=== PATIENT | female | born 1965 | race Caucasian/White ===

== ENCOUNTER 2018-03-03 22:58 | Emergency (ER) | payer BC ==
[2018-03-03 23:36] VITALS: BP 166/98
--- NOTE | 2018-03-03 23:53 | EDM.PDOC ---
ED HPI GENERAL MEDICAL PROBLEM - General Chief Complaint: General Stated Complaint: TICK BITE Time Seen by Provider: 03/03/18 23:40 Source of Information: Reports: Patient History Limitations: Reports: No Limitations - History of Present Illness INITIAL COMMENTS - FREE TEXT/NARRATIVE: 52 yo female had her pull a deer tick off her L thigh this evening. She came in looking for doxycycline for prophylaxis. Uncertain how long the tick had been attached. Onset: Today Onset Date: 03/03/18 Duration: Other (unknown) Location: Reports: Lower Extremity, Left Quality: Reports: Other (no pain) Severity: Mild Improves with: Reports: None Worsens with: Reports: None Context: Reports: Other (deer tick bite) Associated Symptoms: Reports: No Other Symptoms Treatments APNS: Reports: Other (see below) (tick removal ) - Related Data Allergies Allergy/AdvReac Type Severity Reaction Status Date / Time No Known Allergies Allergy Verified 03/03/18 23:15 Home Meds: Home Meds Insulin Aspart [NovoLOG] 1 unit SQ TIDMEALS PRN 10/07/15 [History] Insulin Glarg,Human.Rec.Analog [Lantus Solostar] 10 units SQ QPM 10/07/15 [ History] Insulin Glarg,Human.Rec.Analog [Lantus Solostar] 14 units SQ QAM 10/07/15 [ History] Lisinopril 40 mg PO DAILY 03/03/18 [History] Past Medical History Cardiovascular History: Reports: Hypertension SOLE INKER History: Reports: Endocrine/Metabolic History: Reports: Diabetes, Type I Oncologic (Cancer) History: Reports: Cervix - Infectious Disease History Infectious Disease History: Reports: Chicken Pox, Influenza - Past Surgical History HEENT Surgical History: Reports: LASIK Social & Family History - Family History Family Medical History: Noncontributory - Tobacco Use Smoking Status *Q: Never Smoker - Caffeine Use Caffeine Use: Reports: Coffee, Tea - Recreational Drug Use Recreational Drug Use: No ED ROS GENERAL - Review of Systems Review Of Systems: See Below Constitutional: Reports: No Symptoms Skin: Reports: Change in Color (red spot at site of attachment.) Neurological: Reports: No Symptoms ED EXAM, GENERAL - Physical Exam Exam: See Below Exam Limited By: No Limitations General Appearance: Alert, WD/WN, No Apparent Distress Extremities: Normal Inspection, Normal Range of Motion, Non-Tender, No Pedal Edema Neurological: Alert, Oriented, CN II-XII Intact, Normal Cognition, No Motor/ Sensory Deficits Psychiatric: Normal Affect, Normal Mood Skin Exam: Warm, Dry, Other (small red spot L thigh at site of attachment. ) Lymphatic: No Adenopathy Course - Vital Signs Text/Narrative:: [place] tick examined, no engorgement at all noted. Therefore duration of attachment much less than CDC's quidelines for 36 hr attachment before prophylaxis. Last Recorded V/S: Last Vital Signs Temp 36.2 C 03/03/18 23:19 Pulse 73 03/03/18 23:19 Resp 16 03/03/18 23:19 BP 166/98 H 03/03/18 23:19 Pulse Ox 97 03/03/18 23:19 Departure - Departure Time of Disposition: 23:53 Disposition: Home, Self-Care 01 Condition: Good Clinical Impression: Tick bite Qualifiers: Encounter type: initial encounter Qualified Code(s): W57.XXXA - Bitten or stung by nonvenomous insect and other nonvenomous arthropods, initial encounter - Discharge Information Referrals: PCP,None [Primary Care Provider] - Forms: ED Department Discharge Additional Instructions: Keep area clean with soap and water. Feel free to call your provider in the morning and ask him if he will call you in an Rx for doxycycline.
== END 2018-03-03 23:52 | disposition home or self-care (01) ==
LOC: JP.ED 22:58
DX: S70.362A Insect bite (nonvenomous), left thigh, initial encounter (principal); E10.9 Type 1 diabetes mellitus without complications; I10 Essential (primary) hypertension; Z79.899 Other long term (current) drug therapy; W57.XXXA Bitten or stung by nonvenomous insect and other nonvenomous arthropods, initial encounter
CPT/HCPCS: 99283

== ENCOUNTER 2022-05-29 17:19 | Emergency (ER) | payer BC ==
[2022-05-29 18:15] VITALS: BP 165/79; PULSE 77
== END 2022-05-29 18:08 | disposition home or self-care (01) ==
LOC: JP.ED 17:19
DX: S61.232A Puncture wound without foreign body of right middle finger without damage to nail, initial encounter (principal); I10 Essential (primary) hypertension; E10.9 Type 1 diabetes mellitus without complications; Z79.4 Long term (current) use of insulin; Z79.899 Other long term (current) drug therapy; W46.1XXA Contact with contaminated hypodermic needle, initial encounter
CPT/HCPCS: 99282